=== PATIENT | female | born 1975 | race Caucasian/White ===

== ENCOUNTER 2018-08-01 12:10 | Emergency (ER) | payer OTHER, SELFPAY ==
[2018-08-01 12:11] VITALS: BP 137/69; PULSE 61; RESP 15; TEMP 36.7; O2SAT 99; BMI 24.0
--- NOTE | 2018-08-01 12:43 | ED.VISSUMM ---
- ER Visit Summary Date of Service: 08/01/18 Chief Complaint: [Dizziness] History of Present Illness: The patient is a 42 F [presents the emergency room with complaint of dizziness that started this morning around 3 or 4 AM when she rolled over in bed. Patient looking the mirror noted that she had nystagmus and felt very dizzy. Patient felt off balance. Patient felt very nauseated but did not vomit. Patient has had prior episodes of nystagmus but never dizziness like this. Patient does have a history of migraines and has followed up with a neurologist regarding the nystagmus and had an MRI of her brain about 2 years ago that was unremarkable as well as an MRV of the brain. No family history of brain tumors or aneurysms. She denies any difficulty with speech or vision otherwise. She denies any weakness. She currently does not have a headache. She has had no falls or head injuries. No real significant illnesses recently she has had a mild cough.] Physical Examination: [HEENT-PERRLA, EOMI. Cranial nerves II through XII grossly intact. TMs clear. Mucous membranes moist. No adenopathy. Cardiovascular-regular rate and rhythm without murmur or ectopy Lungs-clear to auscultation, chest wall stable without crepitus or subcu emphysema Abdomen-normoactive bowel sounds, soft, nontender, no rebound or rigidity, no peritoneal signs. Neuro azrq-ppsngi-bgid and heel comer testing within normal limits, negative Romberg, negative pronator drift. Patient had a Hallpike maneuver performed which showed some mild nystagmus with head turned to the left. The nystagmus fatigued rapidly. Extremities-intact ?4, normal range of motion, normal pulses, atraumatic] Test Results: [None indicated] Emergency Department Course and Treatment: [The Gloria maneuver was performed. Patient was given a dose of Zofran as well as 2 mg of Valium p.o.] Treatment Plan: [Patient will be treated with Zofran and Valium for home. Patient advised to follow-up with her neurologist within next 3-5 days.] Disposition: [Discharged home in stable condition. Patient advised to return if persistent dizziness, vomiting, difficulty with balance, or condition should worsen anyway. Patient advised not to swim or drive or climb.] Impression: [Benign positional vertigo] This note was generated with Dragon dictation software. It may contain incorrect words, spelling, and punctuation that were not noted in review of the chart prior to signing ED Disposition - Plan for ED Patient: Referrals: Fast,Leena, DO [Primary Care Provider] -
--- NOTE | 2018-08-01 12:45 | ED.DEP ---
ED Disposition - Plan for ED Patient: Instructions: ED BPV Vertigo Prescriptions: Ondansetron [Zofran Odt] 4 mg PO Q8H PRN PRN #10 tab PRN Reason: Nausea Diazepam [Valium] 2 mg PO TID PRN PRN #15 tab PRN Reason: Vertigo Referrals: Leena Benitez DO [Primary Care Provider] - 3-5 Days Additional Instructions: see your neurologist
[2018-08-01] MEDS: diazePAM 2 MG Tablet PO (13:10)
[2018-08-01] MEDS: Ondansetron ODT 4 MG Tablet PO (13:11)
== END 2018-08-01 13:17 | disposition home or self-care (01) ==
LOC: ED 13:00
PROVIDERS: Emergency Provider Emergency Medicine; Family Provider Internal Medicine; PCP Internal Medicine
DX: H81.10 Benign paroxysmal vertigo, unspecified ear (principal)
CPT/HCPCS: 99283

== ENCOUNTER → 2018-09-15 | Outpatient (CLI) | payer OTHER, SELFPAY ==
--- NOTE | 2018-09-15 16:23 | MRI_ITS ---
STUDY: MRI BRAIN WITH AND WITHOUT CONTRAST REASON FOR EXAM: Female, 42 years old. Vertigo TECHNIQUE: Standardized multiplanar fat and water weighted pulse sequences were obtained. 15 IV Dotarem was administered for the contrast portion of the examination. COMPARISON: MRI 01/09/2015. FINDINGS: Normal size of the ventricles and extra-axial spaces for the patient's age. Normal white matter tracts of the supratentorial brain. There are no enhancing lesions. Normal bilateral basal ganglia. Normal thalami. There is no extra-axial fluid accumulation. The diffusion-weighted sequence is normal. Normal flow voids within the major intracranial circulation suggesting patency by spin echo criteria. Normal venous enhancement. There is no enhancing intra-axial or extra-axial abnormality. Normal sella turcica, pituitary gland, infundibular stalk, optic chiasm and hypothalamus. Normal tectal plate and pineal gland. Normal midbrain, leslie and medulla. Normal cerebellum. Normal basal cisterns. Normal bilateral temporal bones. Normal bilateral internal auditory canals. No demonstrated orbital abnormality, within the constraints of a routine brain study. There is mild edema within the turbinates. There are no air-fluid levels within the paranasal sinuses. There is minimal mucosal thickening. Normal calvarium and skull base. Normal visualized soft tissue structures. Normal visualized upper cervical spine. MRI/Brain W/WO Contrast IMPRESSION: Normal unenhanced and enhanced MRI of the brain. Minimal inflammatory changes paranasal sinuses Electronically Signed: Raúl Michelle, at 19:56 EDT Tel , Service support ,
== END | disposition home or self-care (01) ==
PROVIDERS: Family Provider Nurse Practitioner; PCP Nurse Practitioner; Referring Provider Psychiatry & Neurology Neurology; Visit Provider Psychiatry & Neurology Neurology
DX: R42 Dizziness and giddiness (principal)
CPT/HCPCS: 70553; A9575

== ENCOUNTER → 2018-09-20 | Outpatient (CLI) | payer OTHER, SELFPAY ==
[2018-09-20 16:37] LABS: Erythrocyte Sedimentation Rate 2 mm/hr (0-20)
[2018-09-20 17:22] LABS: CRP < 2.90 mg/L (0.0-3.0)
[2018-09-23 12:49] LABS: ANTINUCLEAR ANTIBODIES DIRECT Negative (Negative)
== END | disposition home or self-care (01) ==
LOC: LAB 15:38
PROVIDERS: Family Provider Nurse Practitioner; PCP Nurse Practitioner; Referring Provider Psychiatry & Neurology Neurology; Visit Provider Psychiatry & Neurology Neurology
DX: E16.2 Hypoglycemia, unspecified (principal); G43.119 Migraine with aura, intractable, without status migrainosus; G44.52 New daily persistent headache (NDPH); R20.1 Hypoesthesia of skin; R42 Dizziness and giddiness
CPT/HCPCS: 36415; 85652; 86038; 86140

== ENCOUNTER 2019-01-22 17:36 | Emergency (ER) | payer OTHER, SELFPAY ==
[2019-01-22 17:37] VITALS: BP 114/79; PULSE 70; RESP 14; TEMP 36.4; O2SAT 95; BMI 26.4
--- NOTE | 2019-01-22 18:10 | ED.VIS.UPPEX ---
History of Present Illness Chief Complaint: Upper Extremity Injury Informant: Patient Occurred: Hours - 1 Mechanism/Context: Incised Context: Sudden Onset Timing: Continuous Quality of Pain: - - sore Location: R hand Current Severity: Moderate Maximum Severity: Moderate Worsened by: Palpation Relieved by: Leaving alone Associated Symptoms: Negative for: Parasthesia, Weakness, Loss of Funtion Narrative: Xslvk-opgg-ksdojzqh female was using a mandolin to cut food and accidentally cut her right hand when some type of guard gave way. Tetanus Immunization: 5-10 years - 6 yrs Past Medical History - Allergies and Home Meds Allergies/Adverse Reactions: Allergies No Known Allergies Allergy (Verified 01/22/19 17:36) Primary Care Physician: Rhoda Valles NP-C [Primary Care Provider] - Past Medical History: None Lives: Spouse/ Significant Other Smoking Status: Never smoker Review of Systems Musculoskeletal: Reports: Extremity Pain. Denies: Swelling Skin: Reports: Abrasions, Wounds Neurological: Denies: Headache, Weakness, Numbness Physical Exam Vital Signs/Narrative: Vital Signs Temp Pulse Resp BP Pulse Ox 01/22/19 17:37 97.6 F L 70 14 114/79 95 General: Well nourished, Well developed, - - Well-appearing, NAD Head: Normocephalic, Atraumatic Extremeties: Injuries to right thumb, index, and middle fingers. She has a flap laceration to the distal phalanx of the right thumb, basically the ulnar aspect of the pad. Flexor digitorum intact. There is a partial laceration of the middle of the nail itself of the index finger, there is very mild bleeding when I distracted, indicating she probably has a very superficial nailbed laceration, however it appears to be very superficial and does not distract. The long/middle finger has a superficial soft tissue avulsion of the ulnar aspect of the fingertip including the nail, with loss of that tissue, there is nothing to suture here, bleeding is not active. No other nailbed injury, although the distal aspect of the nailbed was involved in the small avulsion. Skin: Normal color, No rash, Trauma - See above. Right thumb laceration 2.5 cm including the flap into the subcu tissue. Neurological: Alert, Oriented x3, Cranial nerves II-XII grossly intact, Normal Strength, Normal Sensation, Normal Gait Psychological: Normal affect, Normal Mood Diagnostic/Tx/Re-eval - Medical Decision Making The thumb laceration was repaired using local anesthetic only. The other wounds were dressed with bacitracin and, I do not think there is any indication for removing the nails on either finger at this time. I think with regards to the superficial nailbed laceration, I do not think repairing it will benefit anything. The nail is incompletely lacerated and still attached, so in my opinion the best management would be supportive care with bacitracin and leaving the nail alone allowing it to grow out. The same for the long finger that has a superficial fingertip avulsion that is down into the dermis and not subcutaneous pad tissue. I discussed all this with her and she is comfortable with that plan. Procedures - Lacerations right thumb Length: 2.5 cm Depth: Skin Shape: Flap Prep: Sterile Conditions, Chlorhexadine Laceration repair: Irrigated, Lidocaine - 1% plain, 2cc, Local Irrigated (ml): 100 Number of Sutures/Gipsy: 4 Suture Information: Ethilon, Simple, 5-0 ED Disposition - Plan for ED Patient: Disposition: Home or Assisted Living Diagnosis: Laceration of right thumb, Laceration of right index finger with damage to nail, Avulsion of fingertip Instructions: NAIL AVULSION, Partial, Skin Avulsion, LACERATION, Hand Referrals: Rhoda Valles, ERICK-C [Primary Care Provider] - 10 Day for suture removal
[2019-01-22 20:36] VITALS: BP 130/85; PULSE 57; RESP 15; O2SAT 98
== END 2019-01-22 20:37 | disposition home or self-care (01) ==
PROVIDERS: Emergency Provider Emergency Medicine; Family Provider Nurse Practitioner; PCP Nurse Practitioner
DX: S61.011A Laceration without foreign body of right thumb without damage to nail, initial encounter (principal); S61.310A Laceration without foreign body of right index finger with damage to nail, initial encounter; S61.302A Unspecified open wound of right middle finger with damage to nail, initial encounter; W26.8XXA Contact with other sharp object(s), not elsewhere classified, initial encounter; Y93.9 Activity, unspecified; Y92.9 Unspecified place or not applicable
CPT/HCPCS: 12001; 99284

== ENCOUNTER 2019-03-02 06:41 | Day surgery (SDC) | payer OTHER, SELFPAY ==
[2019-02-24 17:01] LABS: Hematocrit 38.6 % (37-47); Hemoglobin 12.5 g/dL (12.0-15.0); Mean Corp Hgb Conc 32.4 g/dL (32-36); Mean Corpuscular Hgb 29.6 pg (27.0-32.0); Mean Corpuscular Volume 91.5 fL (81-99); Mean Platelet Vol. 9.9 fl (6.2-12.0); Platelet Count 324 K/mm3 (150-450); RBC Distribution Width CV 13.3 % (11.6-14.6); Red Blood Count 4.22 M/mm3 (4.2-5.4); White Blood Count 5.5 K/mm3 (4.4-11.0)
[2019-02-24 17:12] LABS: Prothrombin Time (Protime)PT. 12.7 SECONDS (11.7-14.9)
[2019-02-24 17:13] LABS: Partial Thromboplast Time 30.8 Seconds (24.1-36.2)
--- NOTE | 2019-02-25 11:18 | PCM.HPOB.BLA ---
History and Physical Date of Admission: 03/02/19 SURGICAL HISTORY AND PHYSICAL Date: 02/24/2019 Name: INGRID HASSAN Age: 43 Date of : 1975 HISTORY OF PRESENT ILLNESS: On 02/24/2019, Ingrid Hassan, a 43 year old female 2 0 0 0 2, presented for: -- Pre-Op -- Ingrid is here today for her preop appointment. Patient is scheduled for Dx lap BS, 03/02/2019. Patient states that she has received PAT phone call from the hospital. SHe is planning to have labs done today after appointment in this office. Paperwork reviewed with patient and consents signed. Patient denies any other questions or concerns at this time. jlb as above. Planned diagnostic laparoscopy with bilateral salpingectomy with removal of Filshie clips for chronic pelvic pain, dyspareunia and suspected malposition of clips. shm ALLERGIES: No Known Drug Allergies MEDICATIONS HISTORY: Patient is also takin. Emgality Syringe 120 mg/mL subcutaneous syringe, As Directed once a month REVIEW OF SYSTEMS: GENERAL - Denies fever, or chills SKIN - Denies skin changes EYES - wears eye glasses and wears contact lenses EARS - Denies difficulty hearing NOSE - Denies nasal congestion or bleeding MOUTH - Denies sore throat or difficulty swallowing NECK - Denies pain or swelling RESPIRATORY - Denies shortness of breath or wheezing CARDIOVASCULAR - Denies palpitations or chest pain GASTROINTESTINAL - Denies nausea, vomiting, diarrhea, constipation GENITOURINARY - Denies dysuria, frequency of urination, incontinence of urine MUSCULOSKELETAL - Denies joint or muscle pain NEUROLOGICAL - Denies localized numbness or weakness PSYCHIATRIC - Denies depression or anxiety ENDOCRINE - Denies heat or cold intolerance, weight loss or gain HEMATO-IMMUNOLOGIC - Denies excesive bleeding with cuts PAST HISTORY: Breast/Ovarian/Colon Cancers - paternal grandmother ovarian/uterine ca Infections - Chicken pox Illnesses - irregular heart rhytym Accidents - None History of Abnormal PAPS - Denies Hospitalizations - Childbirth and surgery last pap about 5 years ago; SURGICAL HISTORY: 1. tubal 2. Rt foot surgery 3. [place] Teeth Removal 4. Rt ankle surgery MENSTRUAL HISTORY: LMP Known?- DefiniteAmount/Duration - 5 days, Regularity - Regular, Frequency - monthly days, LMP - 02/10/19, Age Onset Menarche - 14 FAMILY HISTORY: Father - Type 2 Diabetes; Father - FH: Hypertension; Mother - FH: Hypertension; PaternalGrandparent - Neoplasm of uterus; PaternalGrandparent - Ovarian Carcinoma; BP- 104/82 Sitting, Left arm, regular cuff Temp- 97.8 Taken Orally Weight- 180.00 lbs Height- 69.00 inch BMI:26.64 CONSTITUTIONAL - NAD, well nourished, and well developed SKIN - No rash, lesions, or ulcers HEENT - normocephalic, atraumatic, sclerae anicteric LUNGS - CTA x2 without wheezes, crackles or rales CARDIAC - Regular rate and rhythm without rubs, murmurs, or gallops ABDOMEN - Without hepatosplenomegaly, distention, masses, rebound, or guarding; normal bowel sounds; no hernias EXTREMITIES - No edema or calf tenderness NEUROLOGICAL - normal gait, normal balance, normal motor PSYCHIATRIC - A and O to time, place, person, mood and affect Laboratory Tests 02/24/19 02/24/19 02/24/19 Range/Units 16:28 16:28 16:28 WBC 5.5 (4.4-11.0) K/mm3 RBC 4.22 (4.2-5.4) M/mm3 Hgb 12.5 (12.0-15.0) g/dL Hct 38.6 (37-47) % MCV 91.5 (81-99) fL MCH 29.6 (27.0-32.0) pg MCHC 32.4 (32-36) g/dL RDW Std Deviation 45.0 H (35.1-43.9) fl RDW Coeff of Vivek 13.3 (11.6-14.6) % Plt Count 324 (150-450) K/mm3 MPV 9.9 (6.2-12.0) fl PT 12.7 (11.7-14.9) SECONDS INR 1.0 APTT 30.8 (24.1-36.2) Seconds Blood Type O POSITIVE Antibody Screen NEGATIVE ASSESSMENT: 1. Lower Abdominal Pain, Unspecified 2. Superficial Foreign Body Of Abdomen, Lower Back, Pelvis And External Genitals 3. Dyspareunia PLAN BY DIAGNOSIS: 1. Dyspareunia, Lower Abdominal Pain, Unspecified, Superficial Foreign Body Of Abdomen, Lower Back and Pelvis And External Genitals Reviewed Filshie clip location on OSH XRAYs - suspicous for migration versus adhesion pulling into RLQ Plan diagnostic laparoscopy, bilateral salpingectomy anticipated outpatient hospitalization and recovery procedure reviewed Discussed procedural r/b/i/a Consents signed and reviewed Preop labs pending NPO @ [place] prior to procedure Patient given opportunity to ask questions and questions answered to her satisfaction.
--- NOTE | 2019-03-02 06:42 | EKG12_ITS ---
Test Reason : PRE OP Blood Pressure : / mmHG Vent. Rate : 067 BPM Atrial Rate : 067 BPM P-R Int : 150 ms QRS Dur : 082 ms QT Int : 396 ms P-R-T Axes : 025 037 005 degrees QTc Int : 418 ms Normal sinus rhythm Nonspecific T wave abnormality Abnormal ECG No previous ECGs available Confirmed by LISSETTE TERRELL, XAVIER ([id number]), meat molder BERNARDINO DUENAS ([id number]) on 03/08/2019 10:31:59 AM Referred By: Mora Barahona Confirmed By:ANDREA MCLAUGHLIN MD
[2019-03-02 07:08] VITALS: BP 108/64; PULSE 67; RESP 15; TEMP 36.8; O2SAT 100; BMI 25.3
[2019-03-02 07:20] LABS: Internal QC Validated? YES +Cl - CLEAR BKGD; Pregnancy, Urine Negative Negative
[2019-03-02] MEDS: Lactated Ringers 1,000 ML 100 ML IV (07:22)
--- NOTE | 2019-03-02 08:15 | FALS_PTH ---
PATIENT: JEFERSON JACKMAN [place] [facility] [place][id number] AGE/SX: 43/F ROOM: RE03/02/[address]: Dr. Mora Saha MD : 1975 BED: DIS: 03/02/2019 SPEC #: [id number] RECD: 03/02/19 11:13 STATUS: FAHAD GET #: [id number] ALM: 03/02/19 08:[address]: Mora Lyles DEPT: SURGICAL PATHOLOGY RECD BY: Sudheer Oliver ENTERED: 03/02/19 13:07 SP TYPE: FALL TUBES OTHR DR: Rhoda Valles, APPRENTICE COSMETOLOGIST-C Tissues: Fallopian tube Procedures: Surgery Specimen Level IV HEADER OPERATION: Diagnostic laparoscopy salpingectomy PRE-OP DIAGNOSIS: Lower abdominal pain; superficial foreign body of abdomen, lower back, pelvis and external genitalia; dyspareunia TISSUE SUBMITTED: Bilateral fallopian tubes, tie on right MICROSCOPIC DIAGNOSIS Bilateral fallopian tubes, bilateral salpingectomy: Bilateral fallopian tubes including fimbrial ends, no pathologic diagnosis. Paratubal cyst. GERA:jraen 03/03/19 MICROSCOPIC DESCRIPTION Slides are reviewed. GROSS DESCRIPTION Received is one container labeled with the patient's name and designated bilateral fallopian tubes, tie on right. The specimen consists of bilateral fallopian tubes including fimbrial ends. The right tube is identified by a tie and measures 5 cm in length and up to 1 cm in diameter. The left tube is received in two pieces. The larger piece measures 3.5 cm in length and 0.5 cm in diameter. The smaller piece measures 1 x 0.5 x 0.5 cm. Also present in the container is a paratubal cyst measuring 0.4 cm in greatest dimension. Sections of both fallopian tubes do not reveal any mass lesion. Photoengraving Photographer sections are submitted in two cassettes as follows: 1 - right fallopian tube, 2 - left fallopian tube and paratubal cyst. / GERA:jaren 03/02/19 TC:5 CPT: 91189 x2
[2019-03-02] MEDS: Bupivacaine Mpf 0.5% 30 ML VIAL (09:40)
--- NOTE | 2019-03-02 10:09 | OP.PCM_ITS ---
Problem List (1) Chronic female pelvic pain Status: Chronic (2) Foreign bodies Status: Acute (3) Family history of malignant neoplasm of ovary Status: Acute Report of Operation Date of Procedure: 03/02/19 Pre-Operative Diagnosis: 1. Chronic pelvic pain. 2. dyspareunia. 3. Migrated Filshie clip. 4. Family history of ovarian cancer Post-Operative Diagnosis: 1. Chronic pelvic pain. 2. dyspareunia. 3. Migrated Filshie clip. 4. Family history of ovarian cancer Surgery/Procedure Performed:: 1. Diagnostic laparoscopy. 2. Bilateral distal salpingectomy. 3. Lysis of adhesions. 4. Removal of omental Filshie clips Description of Surgical Findings:: Prior partial salpingectomy with no evidence of Filshie clip at the tube. Both Filshie clips identified embedded in the omentum. Uterus normal in appearance, ovaries also normal. satellite dish installer: Ira Triplett Type of Anesthesia:: General Anesthesiologist: Shivam Franco Estimated Blood Loss (mL): 5 Fluids Replaced: 2000 ml Description of Procedure: The patient was brought to the operating room and stenting performed. She is placed in the dorsal supine position and induced under general anesthesia and intubated. She was then repositioned into dorsolithotomy and her arms tucked at the sides. An examination under anesthesia was performed. Abdomen and perineum were prepped and draped in sterile fashion. Straight catheterization of the bladder was performed. The patient was placed into high lithotomy and a speculum placed into the vagina the cervix was grasped at the anterior cervical lip using a single-tooth tenaculum and an acorn cannula was placed and secured for uterine manipulation. The patient was then placed into low lithotomy attention turned to the abdomen. Marcaine was injected at the inferior umbilicus. An infraumbilical incision was made using the scalpel and Veress needle placed successful hanging drop test and no aspirate. The abdomen was insufflated to 15 mmHg. Veress needle was removed and a 5 mm port placed under laparoscopic guidance permitting entry into the abdominal cavity. The patient was then placed into Trendelenburg. Right and left lower quadrant tap blocks were performed under laparoscopic guidance. Incisions were made and 2 additional ports were placed at each of the sites. The pelvis and abdomen were inspected with no evidence of the Filshie clips. It appeared the patient had partial salpingectomy prior bilaterally. I proceeded with distal salpingectomy. The right tubal fimbria was identified and the distal tube was clamped, coagulated and cut utilizing the Enseal device. In similar fashion the left distal salpingectomy was performed. The patient was placed into reverse Trendelenburg and Filshie clips were identified within the omentum following further inspection. The patient was then flattened and I proceeded with lysis of omental adhesion using sharp and blunt dissection to free each of the Filshie clips. Clips were removed via ports. There was a small amount of oozing at the second dissection site within the omentum that had stopped with compression. Abdomen and pelvis were again inspected with excellent hemostasis. The procedure was complete. The trochars were removed from the abdomen and abdomen desufflated. The patient was given several large back breaths to further ex- boss the carbon dioxide. The skin was closed using 4-0 Monocryl and additional arcane was placed subcutaneously for a total of 20 cc. Steri-Strips and OpSite were placed over the incisional sites. The tenaculum was removed from the cervix at the site hemostatic. Was placed into dorsal supine position, awakened, extubated and transferred to the recovery room without complication. Sponge and needle counts were correct x2. - Complications None - Admit VTE Documentation VTE Present on Admission: No VTE Mechan Device Prophylaxis: SCD's VTE Pharm Prophylaxis ordered?: No
[2019-03-02 10:12] VITALS: BP 108/64; BP 113/77; PULSE 68; RESP 16; TEMP 36.6; O2SAT 100
[2019-03-02 10:15] VITALS: BP 107/66; BP 108/64; PULSE 59; RESP 16; O2SAT 100
--- NOTE | 2019-03-02 10:24 | DCINST_ITS ---
- Discharge Diagnoses Current Active Problems: Current Active and Chronic Problems Chronic female pelvic pain (Chronic) Foreign bodies (Acute) Family history of malignant neoplasm of ovary (Acute) You will use the following diet at home:: No restrictions Your food should be the consistency of: Regular Discharge Activity: Return to Normal Activity, May not drive while taking narcotic pain medications., May Shower, May Take a Tub Bath, - - No lifting > 10-20 lb for 2 weeks Lifting Restrictions: 10-20 lb Call your doctor if your incision/area has: Continuous Slow Oozing, Sudden Increased Bleeding, Increased Pain/ Swelling, Increased Redness Call your doctor if you observe: Fever of 101 or Higher, Inability to urinate, Inability to have a bowel movement, Using more than one pad per hour, Shortness of breath, Chest pain, Calf discomfort, Uncontrolled pain Suture Line Care: Avoid Pulling/Pushing Remove Dressing in (days):: 1 Cleanse incision/area with: Soap & Water Allergies/Adverse Reactions: Allergies No Known Allergies Allergy (Verified 03/02/19 07:07) Medications to take at Discharge Galcanezumab-Gnlm [Emgality Syringe] 120 mg SQ QMONTH 02/23/19 Sumatriptan Succinate [Imitrex] 100 mg PO PRN PRN 02/23/19 Docusate Sodium [Colace] 100 mg PO BID PRN PRN #30 cap 03/02/19 Ibuprofen 600 mg PO TID PRN #30 tab 03/02/19 Oxycodone [Oxyir] 5 mg PO Q6H PRN PRN 7 Days #12 tab 03/02/19 The following prescriptions were given: Docusate Sodium [Colace] 100 mg PO BID PRN PRN #30 cap PRN Reason: Constipation Transmission Status: Pending to [id number] Ibuprofen 600 mg PO TID PRN #30 tab PRN Reason: Pain Or Fever Transmission Status: Pending to [id number] Oxycodone [Oxyir] 5 mg PO Q6H PRN PRN 7 Days #12 tab PRN Reason: Pain Score 6-10/10 Transmission Status: Received by [id number] Orders to be completed after discharge: Type & Screen Time Frame: 02/23/19, Facility: [facility] [place], Location: Laboratory 12 Lead EKG [[facility]] Time Frame: 02/23/19, Facility: [facility], Location: Cardiovascular Services Basic Metabolic Profile (BMP) Time Frame: 02/23/19, Facility: [facility], Location: Laboratory CBC-Complete Blood Cnt No Diff Time Frame: 02/23/19, Facility: [facility] [place], Location: Laboratory Partial Thromboplast Time Time Frame: 02/23/19, Facility: [facility] [place], Location: Laboratory Prothrombin Time w/INR Time Frame: 02/23/19, Facility: [facility], Location: Laboratory Primary Care Physician: Rhoda Valles NP-C [Primary Care Provider] - Test Results: Test results from this visit will be discussed in further detail at your follow- up appointment, if applicable. Please Follow Up With: Mora Barahona MD When: 2-4 weeks
[2019-03-02 10:30] VITALS: BP 108/64; BP 109/68; PULSE 58; RESP 16; O2SAT 100
[2019-03-02 10:43] VITALS: BP 108/64; BP 115/68; PULSE 58; RESP 16; O2SAT 100
[2019-03-02 12:10] VITALS: BP 108/64; BP 120/68; PULSE 70; RESP 16; TEMP 36.8; O2SAT 100
--- NOTE | 2019-03-02 13:00 | PCM.HPOB.BLA ---
- Problem List (1) Chronic female pelvic pain Status: Chronic (2) Foreign bodies Status: Acute (3) Family history of malignant neoplasm of ovary Status: Acute History and Physical Date of Admission: 03/02/19 Patient was seen and examined. PMH reviewed with no interval change. See H&P. Consents previously signed. Plan to proceed as planned with diagnostic laparoscopy, bilateral salpingectomy with Filshie clip removal.
== END 2019-03-02 12:22 | disposition home or self-care (01) ==
LOC: SDC 06:44 → AC 06:50
PROVIDERS: Anesthesiology; Family Provider Nurse Practitioner; PCP Nurse Practitioner; Referring Provider Obstetrics & Gynecology; Visit Provider Obstetrics & Gynecology
PROC: (CPT 58661; principal; 2019-03-02 08:00)
DX: N83.8 Other noninflammatory disorders of ovary, fallopian tube and broad ligament (principal); T83.428A Displacement of other prosthetic devices, implants and grafts of genital tract, initial encounter; N94.10 Unspecified dyspareunia; R10.2 Pelvic and perineal pain; G89.29 Other chronic pain; Z80.41 Family history of malignant neoplasm of ovary; G43.909 Migraine, unspecified, not intractable, without status migrainosus
CPT/HCPCS: 58661; 36415; 81025; 85027; 85610; 85730; 86850; 86900; 86901; 88302; 88305; 93005; J7120; C1760; J2405

== ENCOUNTER → 2020-03-25 16:21 | Outpatient (CLI) | payer OTHER, SELFPAY ==
[2020-03-25 16:25] LABS: Bacteria 0 SEEN /hpf (None Seen); Mucous, Urine 0 SEEN /hpf (<or=2+); White Blood Cells 0 SEEN /hpf (0-5)
[2020-03-25 17:42] LABS: Absolute Lymphocyte Count 1.95 X10^3/uL (0.83-4.51); Absolute Neutrophil Count 2.2 X10^3/uL (2.0-7.7); Basophil# 0.04 X10^3/uL; Basophil% 0.8 % (0-1); Eosinophil# 0.12 X10^3/uL; Eosinophils% 2.5 % (0-5); Hematocrit 41.7 % (37-47); Hemoglobin 13.2 g/dL (12.0-15.0); Lymphocyte # 1.95 X10^3/ul (4.0); Lymphocyte % 41.2 % (19-41); Mean Corp Hgb Conc 31.7 g/dL (32-36); Mean Corpuscular Hgb 29.1 pg (27.0-32.0); Mean Corpuscular Volume 92.1 fL (81-99); Mean Platelet Vol. 9.9 fl (6.2-12.0); Monocyte# 0.38 X10^3/uL; NRBC Flagged by Analyzer 0 % (0-5); Neutrophil # 2.23 X10^3/uL (2.7-7.7); Neutrophil % 47.3 % (47-70); Platelet Count 344 K/mm3 (150-450); RBC Distribution Width CV 13.2 % (11.6-14.6); RBC Distribution Width SD 44.9 fl (35.1-43.9); Red Blood Count 4.53 M/mm3 (4.2-5.4); White Blood Count 4.7 K/mm3 (4.4-11.0)
[2020-03-25 17:45] LABS: Color, Urine Yellow (Yellow); Glucose, Dipstick Normal (Normal); Ketone-Dipstick Negative (Negative); Leukocyte Esterase-Dipstick Negative /ul (Negative); Nitrite-Dipstick Negative (Negative); Occult Blood-Urine 25 /ul (Negative); Protein-Dipstick Negative (Negative); Specific Gravity, Urine 1.015 (1.002-1.030); Urine Bilirubin Dipstick Negative (Negative); Urine Clarity Clear (Clear); Urine Urobilinogen Normal (Normal); Urine pH 6.5 (5.0 - 8.0)
[2020-03-25 18:02] LABS: ALB/GLOB Ratio 1.1 RATIO (0.9-2.4); AST(SGOT) 11 U/L (15-37); Alanine Aminotransfer ALT/SGPT 24 U/L (13-56); Alkaline Phosphatase 106 U/L (45-117); Anion Gap 7 (5-15); BUN 14 mg/dL (7-18); BUN/Creat Ratio 17.4 RATIO (10-20); Calcium,Total 9.1 mg/dL (8.5-10.1); Chloride 105 mmol/L (98-107); EST Glomerular Filtration Rate 82 mL/min (>60); Est Glom Filt Rate - Afr Amer 99 mL/min (>60); Free T3 2.9 pg/mL (2.18-3.98); Globulin 3.7 g/dL (2.2-4.2); Glucose 93 mg/dL (74-106); Potassium 3.9 mmol/L (3.5-5.1); Protein, Total 7.7 g/dL (6.4-8.2); Sodium Level 140 mmol/L (136-145); Thyroid Stim Hormone (TSH) 1.92 uIU/mL (0.358-3.74)
[2020-03-25 18:04] LABS: Red Blood Cells-Urine 0-5 SEEN /hpf (0-5); Squamous Epithelial Cells - UA 0-5 SEEN /hpf (5-10)
== END ==
PROVIDERS: PCP Nurse Practitioner; Referring Provider Nurse Practitioner; Visit Provider Nurse Practitioner
DX: R63.4 Abnormal weight loss (principal)
CPT/HCPCS: 36415; 80053; 81001; 84439; 84443; 84481; 85025

== ENCOUNTER 2020-08-09 13:57 | Outpatient (RCR) | payer OTHER, SELFPAY ==
[2020-08-09] MEDS: COVID-19 VACC, MRNA(PFIZER)/PF 30 MCG/0.3 ML SYRINGE IM (16:09)
[2020-08-30] MEDS: COVID-19 VACC, MRNA(PFIZER)/PF 30 MCG/0.3 ML SYRINGE IM (15:36)
== END 2020-08-09 23:59 ==
LOC: IMMUN 13:57
PROVIDERS: PCP Nurse Practitioner; Visit Provider Family Medicine
DX: Z23 Encounter for immunization (principal)
CPT/HCPCS: 0001A; 0002A; 91300